=== PATIENT | male | born 1985 | race Caucasian/White ===

== ENCOUNTER → 2021-02-07 15:48 | Outpatient (CLI) | payer BC, SELFPAY ==
[2021-02-07 18:00] LABS: Motility Quality Moderate Progression (Mod-Rapid); PH,Semen 7.5 (7.3-8.3); Semen Viscosity Normal (Normal); Sperm Motility 60 % (50-90); WBCs,Semen Negative
[2021-02-07 18:48] LABS: Sperm Morphology Normal (Normal)
[2021-02-07 21:33] LABS: Sperm Count 41 mil/mm3 (20-160)
[2021-02-07 21:34] LABS: 3Hr Motility Quality Moderate Progression (Mod-Rapid); 3Hr Sperm Motility 10 % (50-60)
== END ==
PROVIDERS: Visit Provider Nurse Practitioner Obstetrics & Gynecology
DX: N46.9 Male infertility, unspecified (principal)
CPT/HCPCS: 89320

== ENCOUNTER 2021-04-10 16:17 | Emergency (ER) | payer BC, SELFPAY ==
[2021-04-10 18:11] VITALS: BP 142/84; PULSE 91; RESP 18; TEMP 37.2; O2SAT 96; BMI 31.6
--- NOTE | 2021-04-10 18:35 | HMH.EDUTC ---
[facility] [place] Disposition Clinical Impression: Exposure to COVID-19 virus Acute bronchitis Qualifiers: Bronchitis organism: unspecified organism Qualified Code(s): J20.9 - Acute bronchitis, unspecified Sinusitis Qualifiers: Sinusitis location: unspecified location Chronicity: acute Recurrence: non-recurrent Qualified Code(s): J01.90 - Acute sinusitis, unspecified Disposition: Home, Self-Care Condition on Discharge: Good Instructions: Sinusitis, DI for Sinusitis Additional Instructions: Drink plenty of fluids. Take tylenol or ibuprofen for pain or fever. Take the medications as directed. Follow up with your regular doctor. GO TO THE ER FOR ANY WORSENING SYMPTOMS Quarantine until you know the results of your covid-19 test. Notify your school or workplace of your results and follow their instructions regarding return to work/school. Don't start the oral steroids until tomorrow, since you had the shot here today. The cough medication (promethazine dm) will make you drowsy, so don't drive or operate heavy machinery after taking it. Prescriptions: Promethazine/Dextromethorphan [Promethazine-Dm Syrup] 5 ml PO Q6HP PRN #240 ml PRN Reason: Cough Transmission Status: Received by [email or web address] # methylPREDNISolone [Medrol] 4 mg PO DIRECTED 6 Days #21 packet Transmission Status: Received by [email or web address] # Azithromycin [Z-Bar 250mg Tab*] 250 mg PO UD DOSE PK #6 tab Transmission Status: Received by [email or web address] # Referrals: Festus Ford MD [Primary Care Provider] - Forms: Work/School Release Time of Disposition: 19:19 Medical Decision Making - Medical Records Medical records reviewed: No: I reviewed the patient's medical records. - Malcolm Inquiry Pt receiving controlled substance: No Vital Signs: 04/10/21 18:11 Temperature 99 F Temperature Source Oral Pulse Rate [Left] 91 H Respiratory Rate 18 Blood Pressure [Right Arm] 142/84 H Blood Pressure Mean [Right Arm] 103 02 Sat by Pulse Oximetry 96 - Lab Data Lab results reviewed: Yes: I reviewed the patient's lab results. Lab Results 04/10/21 18:39: Influenza Type A Ag Negative, Influenza Type B Ag Negative 04/10/21 18:42: Group A Strep Rapid Negative Orders (Tests/Meds): ED MEDICATIONS Discontinued Medications Generic Name Dose Route Start Last Admin Trade Name Daphne PRN Reason Stop Dose Admin Ceftriaxone Sodium 1 gm 04/10/21 19:18 04/10/21 19:35 Ceftriaxone 1gm Vial IM 04/10/21 19:19 1 gm ONCE ONE Administration Lidocaine HCl 0 ml 04/10/21 19:18 04/10/21 19:35 Lidocaine 1% 5ml Pf Vial IM 04/10/21 19:19 2 ml ONCE ONE Administration Methylprednisolone Sodium Succinate 125 mg 04/10/21 19:18 04/10/21 19:35 Methylprednisolone Sod Succ 125mg Vial IM 04/10/21 19:19 125 mg ONCE ONE Administration ORDERS Category Date Time Status Covid-19 Nasal PCR ([facility]) Routine Lab 04/10/21 18:42 Received Strep Screen Confirmation Routine Micro 04/10/21 18:42 [facility]ceived [facility] HPI - General Stated complaint: sore throat,cough,KEYES,Congestion Time Seen by Provider: 04/10/21 18:35 Mode of Arrival: Ambulatory Source of Information: Patient Limitations: No Limitations Description of Symptoms (Recalled from Triage Doc. by RN): pt states he has a sinus infection that has moved into his chest. x3 days. HEENT Symptoms (Recalled from RN notes): Yes Resp Symptoms (Recalled from RN notes): Yes Skin Symptoms (Recalled from RN notes): No MS Symptoms (Recalled from RN notes): No Functional Status (Recalled from RN notes): wnl - History of Present Illness Provider Complaint: He states that for the past 3 days he has had sinus congestion and chest congestion. He has had chilling and body aches also. He denies documented fever. - Related Data Previous Rx's Medication Instructions Recorded Azithromycin [Z-Bar 250mg Tab*] 250 mg PO UD DOSE PK #6 tab 04/10/21 Prom[facility]
[2021-04-10 19:03] LABS: UTC Influenza A Antigen Negative (Negative); UTC Influenza B Antigen Negative (Negative)
[2021-04-10 19:11] LABS: Strep Scrn Group A (Rapid) Negative (Negative)
[2021-04-10 20:02] VITALS: BP 142/84; PULSE 91; RESP 18; TEMP 37.2
== END 2021-04-10 20:03 | disposition home or self-care (01) ==
PROVIDERS: Emergency Provider Nurse Practitioner Family; PCP Family Medicine
DX: J20.9 Acute bronchitis, unspecified (principal); J01.90 Acute sinusitis, unspecified; Z20.822 Contact with and (suspected) exposure to COVID-19
CPT/HCPCS: 87430; 87804; 99203; C9803; G0463; J0696; U0003; U0005

== ENCOUNTER → 2021-04-24 12:19 | Outpatient (CLI) | payer BC, SELFPAY ==
[2021-04-25 09:41] LABS: Covid-19 Nasal PCR Sendout Lex POSITIVE
== END ==
PROVIDERS: Visit Provider Nurse Practitioner
DX: U07.1 COVID-19 (principal)
CPT/HCPCS: C9803; U0004; U0005

== ENCOUNTER 2021-04-28 06:49 | Inpatient (IN) | payer BC, SELFPAY ==
[2021-04-28] VITALS (15 sets, daily range): BP systolic 105–125; BP diastolic 67–76; PULSE 76–109; RESP 18–22; TEMP 36.9–38.7; O2SAT 89–96; BMI 31.6; BMI 29.1
--- NOTE | 2021-04-28 06:57 | CT_ITS ---
PROCEDURE INFORMATION: Exam: CTA Chest With Contrast Exam date and time: 04/28/2021 6:57 AM Age: 36 years old Clinical indication: Shortness of breath; Additional info: Covid+ SOA TECHNIQUE: Imaging protocol: Computed tomographic angiography of the chest with contrast. 3D rendering (Not supervised by radiologist): MIP and/or 3D reconstructed images were created by the technologist. Radiation optimization: All CT scans at this facility use at least one of these dose optimization techniques: automated exposure control; mA and/or kV adjustment per patient size (includes targeted exams where dose is matched to clinical indication); or iterative reconstruction. Contrast material: ISOVUE; Contrast volume: 70 ml; Contrast route: INTRAVENOUS (IV); COMPARISON: CR XR CHEST 2V 04/28/2021 7:40 AM FINDINGS: Pulmonary arteries: Suboptimal study due to extensive respiratory/cardiac motion. The main, right, and left pulmonary arteries and their visualized central branches show normal enhancement. Aorta: No thoracic aortic aneurysm or dissection. Lungs: Extensive confluent airspace opacities bilaterally. No central obstructive endobronchial mass or abnormality. Pleural spaces: No pleural effusion or pneumothorax. Heart: Heart size is normal, no pericardial effusion. A few normal-sized to borderline enlarged mediastinal/hilar lymph nodes. Lymph nodes: See Heart finding. Bones/joints: NA IMPRESSION: 1. Suboptimal study without evidence of acute central pulmonary thromboembolism. 2. Extensive MULTIFOCAL PNEUMONIA consistent with COVID-19 INFECTION. Recommend followup to complete resolution.
--- NOTE | 2021-04-28 06:57 | XR_ITS ---
PROCEDURE INFORMATION: Exam: XR Chest Exam date and time: 04/28/2021 6:57 AM Age: 36 years old Clinical indication: Shortness of breath; Additional info: Covid + SOA TECHNIQUE: Imaging protocol: XR of the chest. Views: 2 views. COMPARISON: No relevant prior studies available. FINDINGS: Lungs: Extensive confluent and focal airspace opacities in the lungs. Pleural spaces: No pleural effusion or pneumothorax. Heart/Mediastinum: Cardiomediastinal silhouette is normal. Bones/joints: NA IMPRESSION: MULTIFOCAL PNEUMONIA consistent with COVID-19 INFECTION. Recommend followup to complete resolution.
[2021-04-28 07:14] LABS: Basophils % 0.3 % (0.1-2.0); Eosinophils % 0.1 % (0.1-12.0); Hematocrit 42.8 % (42.0-52.0); Hemoglobin 13.9 g/dL (14.1-18.0); Lymphocytes # 0.5 K/mm3 (0.7-4.5); Lymphocytes % 9.8 % (10-50); Mean Corpuscular HGB Conc 32.4 g/dL (31.8-35.4); Mean Corpuscular Hemoglobin 28.5 pg (27.0-31.2); Mean Platelet Volume 8.5 fl (7.4-10.4); Monocytes # 0.1 K/mm3 (0.1-1.0); Monocytes % 0.9 % (1.7-9.3); Neutrophils # 4.5 K/mm3 (1.8-7.8); Neutrophils % 88.9 % (37.0-80.0); Platelet Count 163 K/mm3 (142-424); Red Blood Count 4.86 M/mm3 (4.60-6.20); Red Cell Distribution Width 12.4 % (11.5-17.5); White Blood Count 5.1 K/mm3 (4.8-10.8)
[2021-04-28 07:15] LABS: Chloride 97 mmol/L (98-107); Potassium 3.8 mmoL/L (3.5-5.1); Sodium 132 mmol/L (136-145)
[2021-04-28 07:17] LABS: Alanine Aminotransferase 32 U/L (12-78); Amylase 90 U/L (30-110); Aspartate Amino Transferase 71 U/L (17-59); Blood Urea Nitrogen 9 mg/dl (9-20); Creatinine Clearance Estimated 125 mL/min (50-200); Estimated Glomerular Filt Rate 75 ml/min (>60); GFR (African American) 91 ML/MIN (>60)
[2021-04-28 07:18] LABS: Albumin/Globulin Ratio 1.3 (1.1-1.8); Alkaline Phosphatase 63 U/L (38-126); Anion Gap 8.8 mEq/L (5-15); Bilirubin,Total 0.4 mg/dl (0.2-1.3); Calcium 8.4 mg/dl (8.4-10.2); Carbon Dioxide 30 mmol/L (22.0-30.0); Globulin 3.1 g/dL (1.3-3.2); Glucose 123 mg/dl (74-100); Lipase 190 U/L (23-300); Total Protein,Serum 7.1 g/dl (6.3-8.2)
[2021-04-28 07:19] LABS: MANUAL DIFFERENTIAL MANUAL DIFFERENTIAL (MANUAL DIFF)
[2021-04-28 07:22] LABS: C-Reactive Protein 121.6 mg/L (0-4)
[2021-04-28 07:49] LABS: Erythrocyte Sedimentation Rate 64 mm/hr (0-15)
[2021-04-28 07:54] LABS: Procalcitonin 0.288 ng/mL (0.0-2.0)
[2021-04-28 08:01] LABS: Lymphocytes % 10 % (10-50); Monocytes % 1 % (2-9); Neutrophils % 89 % (42-76); Platelet Estimate Normal; RBC Morphology Normal; Total Cells Counted 100
--- NOTE | 2021-04-28 08:06 | HMH.EDSOB ---
ED Disposition Clinical Impression: Pneumonia due to COVID-19 virus Respiratory failure, acute Qualifiers: Respiratory failure complication: hypoxia Qualified Code(s): J96.01 - Acute respiratory failure with hypoxia Disposition: Admitted As Inpatient Condition on Discharge: Serious - Critical Care Critical Care Time: No Attestation: On 04/28/21, the high probability of a clinically significant, sudden or life threatening deterioration of the following system(s) required my full and direct attention, intervention and personal management. The time I documented below is in addition to time spent performing reported procedures but includes the following listed in this critical care notation. Medical Decision Making - Medical Records Medical records reviewed: Yes: I reviewed the patient's medical records. - Malcolm Inquiry Pt receiving controlled substance: No Vital Signs: 04/28/21 06:50 04/28/21 07:00 04/28/21 07:30 Temperature 99.6 F Temperature Source Oral Pulse Rate 109 H 92 H Pulse Rate [Right] 102 H Respiratory Rate 18 Blood Pressure 105/70 L 106/67 L Blood Pressure [Right Arm] 122/73 Blood Pressure Mean [Right Arm] 89 02 Sat by Pulse Oximetry 94 L 96 92 L - Lab Data Lab results reviewed: Yes: I reviewed the patient's lab results. Lab Results 04/28/21 07:00: ESR 64 H 04/28/21 07:00: C-Reactive Protein 121.6 H, Amylase 90, Procalcitonin 0.288 04/28/21 07:00: WBC 5.1, RBC 4.86, Hgb 13.9 L, Hct 42.8, MCV 88.0, MCH 28.5, MCHC 32.4, RDW 12.4, Plt Count 163, MPV 8.5, Neut % (Auto) 88.9 H, Lymph % (Auto) 9.8 L, [place] % (Auto) 0.9 L, Eos % (Auto) 0.1, Baso % (Auto) 0.3, Neut # (Auto) 4.5, Lymph # (Auto) 0.5 L, [place] # (Auto) 0.1, Eos # (Auto) 0.0, Baso # (Auto) 0.0, Total Counted 100, Neutrophils % (Manual) 89 H, Lymphocytes % (Manual) 10, Monocytes % (Manual) 1 L, Platelet Estimate Normal, RBC Morphology Normal 04/28/21 07:00: Sodium 132 L, Potassium 3.8, Chloride 97 L, Carbon Dioxide 30, Anion Gap 8.8, BUN 9, Creatinine 1.10, Estimated Creat Clear 125, Estimated GFR 75, Est GFR ( Amer) 91, Glucose 123 H, Calcium 8.4, Total Bilirubin 0.4, AST 71 H, ALT 32, Alkaline Phosphatase 63, Total Protein 7.1, Albumin 4.0, Globulin 3.1, Albumin/Globulin Ratio 1.3, Lipase 190 Result diagrams: 04/28/21 07:00 04/28/21 07:00 Orders (Tests/Meds): ED MEDICATIONS Generic Name Dose Route Start Last Admin Trade Name Freq PRN Reason Stop Dose Admin Sodium Chloride 1,000 mls @ 500 mls/hr 04/28/21 07:00 04/28/21 07:06 Sod Chlor 0.9% 1000ml Bag IV 05/28/21 06:59 Not Given .Q2H MARY Sodium Chloride 8 ml 04/28/21 06:57 Sodium Chloride 0.9% 10ml Vial IV 05/28/21 06:56 NEEDED PRN dilute pepcid Discontinued Medications Generic Name Dose Route Start Last Admin Trade Name Freq PRN Reason Stop Dose Admin Dexamethasone Sodium Phosphate 10 mg 04/28/21 06:57 04/28/21 07:06 Dexamethasone 4mg/Ml 5ml Mdv IV 04/28/21 06:58 10 mg ONCE ONE Administration Famotidine 20 mg 04/28/21 06:57 04/28/21 07:06 Famotidine 20mg/2ml Vial IV 04/28/21 06:58 20 mg ONCE ONE Administration Iopamidol 70 ml 04/28/21 08:01 04/28/21 08:02 Iopamidol-370 (76%);100ml Bottle IV 04/28/21 08:02 70 ml ONCE ONE Administration Ketorolac Tromethamine 30 mg 04/28/21 06:57 04/28/21 07:06 Ketorolac 30mg/Ml Vial IV 04/28/21 06:58 30 mg ONCE ONE Administration Metoclopramide HCl 10 mg 04/28/21 06:57 04/28/21 07:06 Metoclopramide Hcl 10mg/2ml Vial IVP 04/28/21 06:58 10 mg ONCE ONE Administration Ondansetron HCl 4 mg 04/28/21 06:57 04/28/21 07:06 Ondansetron 4mg/2ml Vial IV 04/28/21 06:58 4 mg ONCE ONE Administration Sodium Chloride 50 ml 04/28/21 08:01 04/28/21 08:02 0.9 % Sodium Chloride 50 Ml Vial IV 04/28/21 08:02 50 ml ONCE ONE Administration Sodium Chloride 10 ml 04/28/21 08:01 04/28/21 08:02 Sodium Chloride 0.9% 10ml Syr (Rad On
--- NOTE | 2021-04-28 08:15 | PC.NURSE ---
placed pt on 2LPM NC d/t sat 89%
--- NOTE | 2021-04-28 08:46 | HMH.PHAINT ---
MEDICATION RECONCILIATION COMPLETED ON PATIENT USING EXTERNAL FILL HISTORY FROM PHARMACY. -BETY GALLOWAY, CEZARD
--- NOTE | 2021-04-28 09:53 | PC.NURSE ---
Patients being moved around, nurse is unable to take report at this time, will call back when available
--- NOTE | 2021-04-28 10:06 | PC.NURSE ---
Report given to Leta BEARD
--- NOTE | 2021-04-28 11:55 | HMH.PHAVTE ---
[facility] Pharmacy VTE Monitoring - Patient Demographics Admission date: 04/28/21 Report Date: 04/28/21 Time: 11:55 Allergies/Adverse Reactions: Patient Allergies No Known Allergies Allergy (Verified 04/10/21 18:56) Height: 1.75 m Weight: 89.613 kg Patient Problems: Current Active Problems Pneumonia due to COVID-19 virus (Acute) Respiratory failure, acute (Acute) - VTE Risk Labs: VTE Related Lab Results Hgb 13.9 g/dL (14.1-18.0) L 04/28/21 07:00 Hct 42.8 % (42.0-52.0) 04/28/21 07:00 Plt Count 163 K/mm3 (142-424) 04/28/21 07:00 BUN 9 mg/dl (9-20) 04/28/21 07:00 Creatinine 1.10 mg/dl (0.66-1.25) 04/28/21 07:00 Estimated Creat Clear 125 mL/min (50-200) 04/28/21 07:00 - Prophylaxis VTE Prophylaxis Ordered?: Yes Types of VTE Prophylaxis: TEDS Knee High, Pharmacological Location of Applied Device: Bilateral Lower Extremeties Pharmacologic Type: Enoxaparin
--- NOTE | 2021-04-28 12:23 | HMH.HP ---
*Admission Date: 04/28/21 *Chief complaint: Shortness of breath *History of present illness: 36-year-old male presented to the emergency department with shortness of breath and known diagnosis of COVID-19. Patient reports symptoms began on April 23 with URI symptoms that progressed over 24 hours to include fevers, chills, myalgias and cough with gradually increasing shortness of breath both at rest and with exertion. Cough is productive of clear sputum. Patient is unvaccinated against COVID-19. Symptoms progressed to the point early this morning where he presented to the emergency department. Patient had mild hypoxia which was corrected with application of nasal cannula at 2 L/min. Chest x-ray shows diffuse bilateral infiltrates decision has been made to admit the patient for COVID 19 with bilateral pneumonia and acute respiratory failure. Patient reports a medical history of bronchitis a lot as a child but never received a diagnosis of asthma. He smoked 1 pack of cigarettes a day for approximately 4 years and then transition to vaping devices for 10 years. Patient stopped vaping within the last year. [facility] History I have reviewed the patient's past medical history: Yes *Have you ever received a pneumonia vaccine?: No *Have you received a flu vaccine this season?: No - *Social History Smoking Status: Former smoker (1 pack of cigarettes per day for 4 years, vaping for 10 years) Tobacco Type: cigarettes, e-cigarettes Alcohol Intake: never *Occupational Status:: employed *Travel in the last 8 weeks: None Family Hx:: No significant family history Review of Systems - Review of Systems Review of systems:: pertinent systems reviewed and negative unless documented below - *Neurologic Denies headache(s), Denies seizure-like activity Meds Home Medications Medication Instructions Recorded Confirmed Type Promethazine/Dextromethorphan 5 ml PO Q6HP PRN #240 ml 04/10/21 04/28/21 Rx [Promethazine-Dm Syrup] Azelastine HCl [Azelastine Nasal 2 spray NS BIDP PRN 04/28/21 04/28/21 History [place] 30mL Bottle] Allergies Allergy/AdvReac Type Severity Reaction Status Date / Time No Known Allergies Allergy Verified 04/10/21 18:56 Exam Vital signs and Labs for Last 24 Hours: Temp Pulse Resp BP Pulse Ox 98.8 F 92 H 22 119/71 93 L 04/28/21 11:09 04/28/21 11:09 04/28/21 11:09 04/28/21 11:09 04/28/21 11:09 Laboratory Results - last 24 hr 04/28/21 07:00: ESR 64 H 04/28/21 07:00: C-Reactive Protein 121.6 H, Amylase 90, Procalcitonin 0.288 04/28/21 07:00: WBC 5.1, RBC 4.86, Hgb 13.9 L, Hct 42.8, MCV 88.0, MCH 28.5, MCHC 32.4, RDW 12.4, Plt Count 163, MPV 8.5, Neut % (Auto) 88.9 H, Lymph % (Auto) 9.8 L, [place] % (Auto) 0.9 L, Eos % (Auto) 0.1, Baso % (Auto) 0.3, Neut # (Auto) 4.5, Lymph # (Auto) 0.5 L, [place] # (Auto) 0.1, Eos # (Auto) 0.0, Baso # (Auto) 0.0, Total Counted 100, Neutrophils % (Manual) 89 H, Lymphocytes % (Manual) 10, Monocytes % (Manual) 1 L, Platelet Estimate Normal, RBC Morphology Normal 04/28/21 07:00: Sodium 132 L, Potassium 3.8, Chloride 97 L, Carbon Dioxide 30, Anion Gap 8.8, BUN 9, Creatinine 1.10, Estimated Creat Clear 125, Estimated GFR 75, Est GFR ( Amer) 91, Glucose 123 H, Calcium 8.4, Total Bilirubin 0.4, AST 71 H, ALT 32, Alkaline Phosphatase 63, Total Protein 7.1, Albumin 4.0, Globulin 3.1, Albumin/Globulin Ratio 1.3, Lipase 190 I & O for Last 24 hours: Intake & Output 04/26/21 04/27/21 04/28/21 04/29/21 11:59 11:59 11:59 11:59 Weight 197 lb 9 oz - Constitutional no acute distress Comments: Ill-appearing - *Routine HEENT Exam Head: Present: normocephalic Eye: Present: EOMI, PERRL ENT: Present: mucous membranes moist - *Routine Neck Exam Present: supple. Absent: lymphadenopathy - *Routine Respiratory Exam Present: CTA bilaterally (Bilateral), rales - *Routine Cardiovascular Exam Present: RRR - *Routine Abdominal Exam Present: soft, normoactive bowel
--- NOTE | 2021-04-28 15:10 | PC.NURSE ---
Pt unable to make productive cough. Specimen cup left at bedside.
[2021-04-29] VITALS (13 sets, daily range): BP systolic 124–139; BP diastolic 62–77; PULSE 73–96; RESP 16–22; TEMP 36.7–37.1; O2SAT 92–97; BMI 31.3
--- NOTE | 2021-04-29 06:10 | PC.NURSE ---
Pt c/o of chills and body aches at beginning of shift, fever of 101.7. Medicated per MAY - recheck temp was 98.5, body aches improved. Pt did prone some during my shift. While sleeping pt would occasionally drop to 88-89%, pt was also snoring and lying on back. Increased O2 to 3 L NC and had pt reposition. O2 sats improved. Will try to titrate back down to 2 L when awake. Call light in reach.
[2021-04-29 07:15] LABS: Chloride 103 mmol/L (98-107)
[2021-04-29 07:16] LABS: Basophils % 0.4 % (0.1-2.0); Hematocrit 40.2 % (42.0-52.0); Hemoglobin 13.3 g/dL (14.1-18.0); Lymphocytes # 0.5 K/mm3 (0.7-4.5); Mean Corpuscular HGB Conc 33.1 g/dL (31.8-35.4); Mean Corpuscular Hemoglobin 28.5 pg (27.0-31.2); Mean Corpuscular Volume 86.3 fl (80-94); Mean Platelet Volume 8.5 fl (7.4-10.4); Monocytes # 0.1 K/mm3 (0.1-1.0); Monocytes % 2.1 % (1.7-9.3); Neutrophils # 3.5 K/mm3 (1.8-7.8); Neutrophils % 84.5 % (37.0-80.0); Platelet Count 174 K/mm3 (142-424); Red Blood Count 4.66 M/mm3 (4.60-6.20); Red Cell Distribution Width 12.7 % (11.5-17.5); Sodium 136 mmol/L (136-145); White Blood Count 4.1 K/mm3 (4.8-10.8)
[2021-04-29 07:19] LABS: Blood Urea Nitrogen 11 mg/dl (9-20); Calcium 8.1 mg/dl (8.4-10.2); Carbon Dioxide 26 mmol/L (22.0-30.0); Creatinine Clearance Estimated 170 mL/min (50-200); Estimated Glomerular Filt Rate 108 ml/min (>60); GFR (African American) 131 ML/MIN (>60); Glucose 146 mg/dl (74-100); Magnesium 2.3 mg/dl (1.6-2.3)
--- NOTE | 2021-04-29 07:38 | P.PN_ITS ---
Internal Medicine - PN: Subj *Date: 04/29/21 *Time: 07:38 Interval history: No acute events. Patient has been lying prone when able. He continues to require supplemental oxygen at 2 or 3 L/min. He denies dyspnea on exertion Exam Vital signs and Labs for Last 24 Hours: Temp Pulse Resp BP Pulse Ox 98.0 F 95 H 22 139/77 95 04/29/21 04:00 04/29/21 04:00 04/29/21 04:00 04/29/21 04:00 04/29/21 04:00 Laboratory Results - last 24 hr 04/28/21 07:00: ESR 64 H 04/28/21 07:00: Procalcitonin 0.288 04/28/21 07:00: Total Counted 100, Neutrophils % (Manual) 89 H, Lymphocytes % (Manual) 10, Monocytes % (Manual) 1 L, Platelet Estimate Normal, RBC Morphology Normal 04/29/21 06:55: WBC 4.1 L, RBC 4.66, Hgb 13.3 L, Hct 40.2 L, MCV 86.3, MCH 28.5, MCHC 33.1, RDW 12.7, Plt Count 174, MPV 8.5, Neut % (Auto) 84.5 H, Lymph % (Auto) 13.0, [place] % (Auto) 2.1, Eos % (Auto) 0.0 L, Baso % (Auto) 0.4, Neut # (Auto) 3.5, Lymph # (Auto) 0.5 L, [place] # (Auto) 0.1, Eos # (Auto) 0.0, Baso # (Auto) 0.0 04/29/21 06:55: Sodium 136, Potassium 4.0, Chloride 103, Carbon Dioxide 26, Anion Gap 11.0, BUN 11, Creatinine 0.80 D, Estimated Creat Clear 170, Estimated GFR 108, Est GFR ( Amer) 131 D, Glucose 146 H, Calcium 8.1 L, Magnesium 2.3 I & O for Last 24 hours: Intake & Output 04/26/21 04/27/21 04/28/21 04/29/21 11:59 11:59 11:59 11:59 Intake Total 1720 / 1720 Balance 1720 / 1720 Weight 197 lb 9 oz 211 lb 9.6 oz Microbiology Reports for the Last 24 Hours: Microbiology 04/28/21 22:48 Sputum - Expectorated Sputum Gram Stain - Final 04/28/21 22:48 Sputum - Expectorated Sputum Sputum Culture - Final Narrative: Patient still looks ill. There is no increased work of breathing. Lungs have diffuse rales and decreased breath sounds posteriorly. Heart has a regular rate and rhythm. Abdomen remains soft Assessment and Plan (1) Pneumonia due to COVID-19 virus Status: Acute Category: Medical Code(s): U07.1 - COVID-19; J12.82 - Pneumonia due to coronavirus disease 2019 (2) Respiratory failure, acute Status: Acute Qualifiers: Respiratory failure complication: hypoxia Qualified Code(s): J96.01 - Acute respiratory failure with hypoxia Category: Medical Code(s): J96.00 - Acute respiratory failure, unspecified whether with hypoxia or hypercapnia - Assessment and plan all Dx Assessment and Plan for all problems:: 1. Continue Remdesivir and dexamethasone along with nutritional supplem entation. Continue duo nebs and budesonide 2. Lovenox for DVT prophylaxis
--- NOTE | 2021-04-29 08:00 | XR_ITS ---
PROCEDURE INFORMATION: Exam: XR Chest Exam date and time: 04/29/2021 8:00 AM Age: 36 years old Clinical indication: Shortness of breath and other: Covid; Additional info: SOB TECHNIQUE: Imaging protocol: XR of the chest. Views: 1 view. COMPARISON: CR XR CHEST 2V 04/28/2021 7:40 AM FINDINGS: Lungs: Bilateral patchy airspace opacities in all lung nguyen noted similar to prior study with slight worsening in the bibasilar and retrocardiac regions, allowing for slight differences in positioning. Pleural spaces: Unremarkable. No pleural effusion. No pneumothorax. Heart/Mediastinum: Unremarkable. No cardiomegaly. Bones/joints: Unremarkable. IMPRESSION: Bilateral patchy airspace opacities in all lung nguyen noted similar to prior study with slight worsening in the bibasilar and retrocardiac regions, allowing for slight differences in positioning.
[2021-04-29 08:48] LABS: Influenza A, PCR Not Detected (NotDetected); Influenza B, PCR Not Detected (NotDetected)
[2021-04-29 09:56] LABS: Coronavirus 19, PCR Detected (NotDetected)
--- NOTE | 2021-04-29 15:06 | PC.NURSE ---
AOX4, HAS AMBULATED TO RR FOR ELIMINATION. 3LNC FOR O2 SUPPORT WITH O2 SATS >90%. NEW IV PLACED 20# LEFT AC.
[2021-04-30] VITALS (11 sets, daily range): BP systolic 120–132; BP diastolic 69–77; PULSE 70–99; RESP 18–24; TEMP 36.6–36.9; O2SAT 90–98; BMI 30.7
[2021-04-30 06:19] LABS: Basophils % 0.6 % (0.1-2.0); Eosinophils % 0.7 % (0.1-12.0); Hematocrit 40.7 % (42.0-52.0); Hemoglobin 12.7 g/dL (14.1-18.0); Lymphocytes # 0.7 K/mm3 (0.7-4.5); Lymphocytes % 13.6 % (10-50); Mean Corpuscular HGB Conc 31.3 g/dL (31.8-35.4); Mean Corpuscular Hemoglobin 27.6 pg (27.0-31.2); Mean Corpuscular Volume 88.2 fl (80-94); Mean Platelet Volume 8.7 fl (7.4-10.4); Monocytes # 0.1 K/mm3 (0.1-1.0); Monocytes % 2.8 % (1.7-9.3); Neutrophils # 4.3 K/mm3 (1.8-7.8); Neutrophils % 82.4 % (37.0-80.0); Platelet Count 204 K/mm3 (142-424); Red Blood Count 4.61 M/mm3 (4.60-6.20); Red Cell Distribution Width 12.6 % (11.5-17.5); White Blood Count 5.2 K/mm3 (4.8-10.8)
[2021-04-30 06:28] LABS: Chloride 103 mmol/L (98-107); Potassium 4.6 mmoL/L (3.5-5.1); Sodium 136 mmol/L (136-145)
[2021-04-30 06:30] LABS: Alanine Aminotransferase 53 U/L (12-78); Aspartate Amino Transferase 85 U/L (17-59); Bilirubin,Total 0.4 mg/dl (0.2-1.3); Blood Urea Nitrogen 12 mg/dl (9-20); Creatinine Clearance Estimated 167 mL/min (50-200); Estimated Glomerular Filt Rate 108 ml/min (>60); GFR (African American) 131 ML/MIN (>60)
[2021-04-30 06:31] LABS: Albumin Level 3.3 g/dl (3.5-5.0); Albumin/Globulin Ratio 1.1 (1.1-1.8); Alkaline Phosphatase 60 U/L (38-126); Anion Gap 10.6 mEq/L (5-15); Calcium 8.1 mg/dl (8.4-10.2); Carbon Dioxide 27 mmol/L (22.0-30.0); Glucose 99 mg/dl (74-100); Total Protein,Serum 6.3 g/dl (6.3-8.2)
[2021-04-30 06:39] LABS: C-Reactive Protein 34.3 mg/L (0-4)
--- NOTE | 2021-04-30 07:12 | P.PN_ITS ---
Internal Medicine - PN: Subj *Date: 04/30/21 *Time: 07:12 Interval history: Patient has no complaints. No acute events over the last 24 hours. Review of his vitals shows a brief increase in his supplemental oxygen to 4 L/min. Currently in the room oxygen set on 3-1/2 L/min. Patient reports improvement in his shortness of breath Exam Vital signs and Labs for Last 24 Hours: Temp Pulse Resp BP Pulse Ox 98.4 F 72 21 126/77 92 L 04/30/21 03:53 04/30/21 06:42 04/30/21 03:53 04/30/21 03:53 04/30/21 06:42 Laboratory Results - last 24 hr 04/29/21 06:55: WBC 4.1 L, RBC 4.66, Hgb 13.3 L, Hct 40.2 L, MCV 86.3, MCH 28.5, MCHC 33.1, RDW 12.7, Plt Count 174, MPV 8.5, Neut % (Auto) 84.5 H, Lymph % (Auto) 13.0, [place] % (Auto) 2.1, Eos % (Auto) 0.0 L, Baso % (Auto) 0.4, Neut # (Auto) 3.5, Lymph # (Auto) 0.5 L, [place] # (Auto) 0.1, Eos # (Auto) 0.0, Baso # (Auto) 0.0 04/29/21 06:55: Sodium 136, Potassium 4.0, Chloride 103, Carbon Dioxide 26, Anion Gap 11.0, BUN 11, Creatinine 0.80 D, Estimated Creat Clear 170, Estimated GFR 108, Est GFR ( Amer) 131 D, Glucose 146 H, Calcium 8.1 L, Magnesium 2.3 04/29/21 08:43: SARS-CoV-2 (PCR) Detected A, Influenza A Untype (PCR) Not detected, Influenza Type B (PCR) Not detected 04/30/21 05:42: Sodium 136, Potassium 4.6, Chloride 103, Carbon Dioxide 27, An ion Gap 10.6, BUN 12, Creatinine 0.80, Estimated Creat Clear 167, Estimated GFR 108, Est GFR ( Amer) 131, Glucose 99 D, Calcium 8.1 L, Total Bilirubin 0.4, AST 85 H, ALT 53 D, Alkaline Phosphatase 60, C-Reactive Protein 34.3 H D, Total Protein 6.3, Albumin 3.3 L, Globulin 3.0, Albumin/Globulin Ratio 1.1 I & O for Last 24 hours: Intake & Output 04/27/21 04/28/21 04/29/21 04/30/21 11:59 11:59 11:59 11:59 Intake Total 2079 / 2079 600 / 600 Balance 2079 / 2079 600 / 600 Weight 197 lb 9 oz 211 lb 9.6 oz 207 lb 8 oz Microbiology Reports for the Last 24 Hours: Microbiology 04/29/21 11:50 Sputum - Expectorated Sputum Gram Stain - Final Narrative: Patient looks comfortable. Lungs are diminished and distant at the bases with rales present in the posterior mid lungs and bases. Anteriorly patient has faint rales. Heart has a regular rate and rhythm. Abdomen is soft. Lower ex tremities have no edema. Sputum culture showing gram-positive cocci in chains and clusters Assessment and Plan (1) Pneumonia due to COVID-19 virus Status: Acute Category: Medical Code(s): U07.1 - COVID-19; J12.82 - Pneumonia due to coronavirus disease 2019 (2) Respiratory failure, acute Status: Acute Qualifiers: Respiratory failure complication: hypoxia Qualified Code(s): J96.01 - Acute respiratory failure with hypoxia Category: Medical Code(s): J96.00 - Acute respiratory failure, unspecified whether with hypoxia or hypercapnia - Assessment and plan all Dx Assessment and Plan for all problems:: 1. Continue Remdesivir and dexamethasone with goal of Remdesivir for at least 5 days 2. Continue supplemental oxygen to keep sats greater than 90 3. Patient will continue prone positioning. Add incentive spirometry 4. Due to abnormal sputum culture vancomycin will be added this morning while awaiting final result
--- NOTE | 2021-04-30 08:11 | HMH.PHACONS ---
- Pharmacy Consult Date: 04/30/21 Time: 08:11 Referring provider: DR VAZQUEZ Reason for Consult:: VANCOMYCIN DOSING CONSULT Allergies and ADEs:: Allergies Allergy/AdvReac Type Severity Reaction Status Date / Time No Known Allergies Allergy Verified 04/10/21 18:56 Home Medications:: Home Medications Medication Instructions Recorded Confirmed Type Promethazine/Dextromethorphan 5 ml PO Q6HP PRN #240 ml 04/10/21 04/28/21 Rx [Promethazine-Dm Syrup] Azelastine HCl [Azelastine Nasal 2 spray NS BIDP PRN 04/28/21 04/28/21 History [place] 30mL Bottle] Height: 1.75 m Weight: 94.12 kg Laboratory Results:: Laboratory Results - last 24 hr 04/29/21 08:43: SARS-CoV-2 (PCR) Detected A, Influenza A Untype (PCR) Not detected, Influenza Type B (PCR) Not detected 04/30/21 05:42: Sodium 136, Potassium 4.6, Chloride 103, Carbon Dioxide 27, Anion Gap 10.6, BUN 12, Creatinine 0.80, Estimated Creat Clear 167, Estimated GFR 108, Est GFR ( Amer) 131, Glucose 99 D, Calcium 8.1 L, Total Bilirubin 0.4, AST 85 H, ALT 53 D, Alkaline Phosphatase 60, C-Reactive Protein 34.3 H D, Total Protein 6.3, Albumin 3.3 L, Globulin 3.0, Albumin/Globulin Ratio 1.1 04/30/21 05:42: WBC 5.2 D, RBC 4.61, Hgb 12.7 L, Hct 40.7 L, MCV 88.2, MCH 27.6, MCHC 31.3 L, RDW 12.6, Plt Count 204, MPV 8.7, Neut % (Auto) 82.4 H, Lymph % (Auto) 13.6, [place] % (Auto) 2.8, Eos % (Auto) 0.7, Baso % (Auto) 0.6, Neut # (Auto) 4.3, Lymph # (Auto) 0.7, [place] # (Auto) 0.1, Eos # (Auto) 0.0, Baso # (Auto) 0.0 Medical History: Denies:: Cancer, Diabetes Mellitus Type 1, Diabetes Mellitus Type 2, Internal Pacemaker, MRSA Assessment and Plan (1) Pneumonia due to COVID-19 virus Status: Acute Category: Medical Code(s): U07.1 - COVID-19; J12.82 - Pneumonia due to coronavirus disease 2018 (2) Respiratory failure, acute Status: Acute Qualifiers: Respiratory failure complication: hypoxia Qualified Code(s): J96.01 - Acute respiratory failure with hypoxia Category: Medical Code(s): J96.00 - Acute respiratory failure, unspecified whether with hypoxia or hypercapnia - Assessment and plan all Dx Assessment and Plan for all problems:: Pharmacokinetic dosing service Objective: Age: 36 yo Serum creatinine: 0.8 mg/dL Height: 68.9 Inches Weight (kg): 94.12 Diagnosis: PNEUMONIA Assessment: IBW (kg): 70.47 Dosing wt(kg): 94.12 Estimated Creatinine clearance (ml/min): 124.8 CRCL method: Cockcroft and Gault using ibw(default). Drug selected: Vancomycin Loading dose (mg): Vd (liters): 65.9 (factor used: 0.7 L/kg) Marc (hr-1): 0.108 Half life (hrs): 6.42 CLvanco=?? 7.117 L/hr Recommended dose: 1750 mg Interval: 12 hrs Infusion time (hrs): 2.0 Predicted peak (mcg/mL): 32.9 Predicted trough (mcg/mL): 11.17 Total body weight is being used for vancomycin dosing. Recommendations: Give Vancomycin 1750 mg q 12 hrs with an expected Cpeak of 32.9 mcg/ml and an expected Ctrough of 11.17 mcg/ml AUC 0-24 /GAVIN Data: GAVIN 0.5 mcg/mL:?? AUC/GAVIN:? 983.6 GAVIN 1.0 mcg/mL:?? AUC/GAVIN:? 491.8 --------- GAVIN 1.5 mcg/mL:?? AUC/GAVIN:? 327.9 GAVIN 2.0 mcg/mL:?? AUC/GAVIN:? 245.9 Thank you for the consult, will continue to follow.
[2021-05-01] VITALS (10 sets, daily range): BP systolic 122–149; BP diastolic 69–82; PULSE 73–102; RESP 16–24; TEMP 36.4–36.8; O2SAT 86–95; BMI 30.7
--- NOTE | 2021-05-01 05:14 | PC.NURSE ---
pt has rested intermittently t/o shift, has remained on room this shift with O2 sats 90-95%, does desat with exertion to low to mid 80's, recovers within approximately 5 minutes, back to 90%, HR 74-95, no complaints of pain
[2021-05-01 06:16] LABS: Basophils % 0.3 % (0.1-2.0); Eosinophils % 0.1 % (0.1-12.0); Hematocrit 40.7 % (42.0-52.0); Hemoglobin 12.9 g/dL (14.1-18.0); Lymphocytes # 0.7 K/mm3 (0.7-4.5); Lymphocytes % 16.2 % (10-50); Mean Corpuscular HGB Conc 31.6 g/dL (31.8-35.4); Mean Corpuscular Hemoglobin 27.8 pg (27.0-31.2); Mean Corpuscular Volume 87.9 fl (80-94); Mean Platelet Volume 8.5 fl (7.4-10.4); Monocytes # 0.2 K/mm3 (0.1-1.0); Monocytes % 4.2 % (1.7-9.3); Neutrophils # 3.5 K/mm3 (1.8-7.8); Neutrophils % 79.2 % (37.0-80.0); Platelet Count 219 K/mm3 (142-424); Red Blood Count 4.63 M/mm3 (4.60-6.20); Red Cell Distribution Width 12.5 % (11.5-17.5); White Blood Count 4.5 K/mm3 (4.8-10.8)
[2021-05-01 06:18] LABS: Chloride 102 mmol/L (98-107); Potassium 4.5 mmoL/L (3.5-5.1); Sodium 135 mmol/L (136-145)
[2021-05-01 06:21] LABS: Alanine Aminotransferase 108 U/L (12-78); Albumin Level 3.4 g/dl (3.5-5.0); Albumin/Globulin Ratio 1.2 (1.1-1.8); Alkaline Phosphatase 61 U/L (38-126); Anion Gap 10.5 mEq/L (5-15); Aspartate Amino Transferase 86 U/L (17-59); Bilirubin,Total 0.4 mg/dl (0.2-1.3); Blood Urea Nitrogen 15 mg/dl (9-20); Calcium 8.5 mg/dl (8.4-10.2); Carbon Dioxide 27 mmol/L (22.0-30.0); Creatinine Clearance Estimated 167 mL/min (50-200); Estimated Glomerular Filt Rate 108 ml/min (>60); GFR (African American) 131 ML/MIN (>60); Globulin 2.9 g/dL (1.3-3.2); Glucose 97 mg/dl (74-100); Total Protein,Serum 6.3 g/dl (6.3-8.2)
--- NOTE | 2021-05-01 06:57 | PC.NURSE ---
pt educated on IS this shift
--- NOTE | 2021-05-01 07:28 | HMH.ACPN2 ---
Internal Medicine - PN: Subj *Date: 05/01/21 *Time: 07:28 Interval history: Patient has no complaints. He feels congested. He reports dyspnea with certain types of exertion such as bending over but less so with walking. O2 sat still ranged from 88 to 95% on room air. Patient does desaturate with exertion Exam Vital signs and Labs for Last 24 Hours: Temp Pulse Resp BP Pulse Ox 97.8 F 95 H 24 123/78 94 L 05/01/21 04:00 05/01/21 06:25 05/01/21 04:00 05/01/21 04:00 05/01/21 06:25 Laboratory Results - last 24 hr 05/01/21 06:00: Sodium 135 L, Potassium 4.5, Chloride 102, Carbon Dioxide 27, Anion Gap 10.5, BUN 15, Creatinine 0.80, Estimated Creat Clear 167, Estimated GFR 108, Est GFR ( Amer) 131, Glucose 97, Calcium 8.5, Total Bilirubin 0.4, AST 86 H, ALT 108 H D, Alkaline Phosphatase 61, Total Protein 6.3, Albumin 3.4 L, Globulin 2.9, Albumin/Globulin Ratio 1.2 05/01/21 06:00: WBC 4.5 L, RBC 4.63, Hgb 12.9 L, Hct 40.7 L, MCV 87.9, MCH 27.8, MCHC 31.6 L, RDW 12.5, Plt Count 219, MPV 8.5, Neut % (Auto) 79.2, Lymph % (Auto) 16.2, [place] % (Auto) 4.2, Eos % (Auto) 0.1, Baso % (Auto) 0.3, Neut # (Auto) 3.5, Lymph # (Auto) 0.7, [place] # (Auto) 0.2, Eos # (Auto) 0.0, Baso # (Auto) 0.0 I & O for Last 24 hours: Intake & Output 04/28/21 04/29/21 04/30/21 05/01/21 11:59 11:59 11:59 11:59 Intake Total 2079 960 / 960 1919 / 1919 Balance 2079 960 / 960 1919 / 1919 Weight 197 lb 9 oz 211 lb 9.6 oz 207 lb 8 oz 207 lb 4.8 oz Microbiology Reports for the Last 24 Hours: Microbiology 04/29/21 11:50 Sputum - Expectorated Sputum Gram Stain - Final 04/29/21 11:50 Sputum - Expectorated Sputum Sputum Culture - Preliminary Narrative: Patient's color looks better. Oropharynx is moist. Neck is supple. Lungs are distant but otherwise no rales or rhonchi. Heart has a regular rate and rhythm. Sputum culture showing gram-positive cocci in chains, clusters, and gram-positive bacilli Assessment and Plan (1) Pneumonia due to COVID-19 virus Status: Acute Category: Medical Code(s): U07.1 - COVID-19; J12.82 - Pneumonia due to coronavirus disease 2019 (2) Respiratory failure, acute Status: Acute Qualifiers: Respiratory failure complication: hypoxia Qualified Code(s): J96.01 - Acute respiratory failure with hypoxia Category: Medical Code(s): J96.00 - Acute respiratory failure, unspecified whether with hypoxia or hypercapnia - Assessment and plan all Dx Assessment and Plan for all problems:: 1. Continue Remdesivir and dexamethasone. Patient is improving. Would anticipate discharge tomorrow as long as patient continues to show improvement. Patient will need supplemental oxygen at discharge. 2. Continue duo nebs during hospitalization 3. Lovenox for DVT prophylaxis
--- NOTE | 2021-05-01 17:53 | PC.NURSE ---
patient has done okay this shift. has taken o2 off and on. does desat into the 70s with exertion and coughing. did turn up to 3l to assist him with recovering back to base line. has used incentive spirometer and educated on it. has been independent. does say he wants to go home but did appear slightly anxious. does appear to have good coloring. only complaint has been the cough. vitals stable
--- NOTE | 2021-05-01 20:01 | PC.NURSE ---
called [facility] at this time for vanc trough of 6.0, [facility]watch advised to change the dose to 2 gm and will put order in
[2021-05-02] VITALS: BP 124/74; PULSE 66; RESP 18; TEMP 36.7; O2SAT 93
[2021-05-02 01:54] LABS: Vancomycin,Peak 21.9 ug/ml (11-39)
[2021-05-02 04:00] VITALS: BP 122/71; PULSE 84; RESP 20; TEMP 37.2; O2SAT 90
[2021-05-02 05:00] VITALS: BMI 30.2
--- NOTE | 2021-05-02 06:08 | PC.NURSE ---
pt has remained on 1-2L NC this shift, O2 sats 90-95%, has appeared anxious this shift, does desat with exertion, has not had any complaints of pain, HR 66-90
[2021-05-02 06:43] VITALS: O2SAT 88
[2021-05-02 06:55] LABS: Chloride 103 mmol/L (98-107); Sodium 135 mmol/L (136-145)
[2021-05-02 06:56] LABS: Basophils % 0.2 % (0.1-2.0); Eosinophils % 0.3 % (0.1-12.0); Hematocrit 42.1 % (42.0-52.0); Hemoglobin 13.5 g/dL (14.1-18.0); Lymphocytes # 0.9 K/mm3 (0.7-4.5); Lymphocytes % 12.1 % (10-50); Mean Corpuscular Hemoglobin 28.3 pg (27.0-31.2); Mean Corpuscular Volume 88.2 fl (80-94); Mean Platelet Volume 8.5 fl (7.4-10.4); Monocytes # 0.2 K/mm3 (0.1-1.0); Neutrophils # 6.6 K/mm3 (1.8-7.8); Neutrophils % 84.4 % (37.0-80.0); Platelet Count 301 K/mm3 (142-424); Potassium 4.5 mmoL/L (3.5-5.1); Red Blood Count 4.78 M/mm3 (4.60-6.20); Red Cell Distribution Width 12.5 % (11.5-17.5); White Blood Count 7.8 K/mm3 (4.8-10.8)
[2021-05-02 06:58] LABS: Alanine Aminotransferase 141 U/L (12-78); Albumin Level 3.7 g/dl (3.5-5.0); Albumin/Globulin Ratio 1.2 (1.1-1.8); Alkaline Phosphatase 65 U/L (38-126); Anion Gap 8.5 mEq/L (5-15); Aspartate Amino Transferase 92 U/L (17-59); Bilirubin,Total 0.5 mg/dl (0.2-1.3); Blood Urea Nitrogen 16 mg/dl (9-20); Carbon Dioxide 28 mmol/L (22.0-30.0); Creatinine Clearance Estimated 146 mL/min (50-200); Estimated Glomerular Filt Rate 94 ml/min (>60); GFR (African American) 114 ML/MIN (>60); Globulin 3.1 g/dL (1.3-3.2); Total Protein,Serum 6.8 g/dl (6.3-8.2)
[2021-05-02 06:59] LABS: Calcium 8.2 mg/dl (8.4-10.2); Glucose 81 mg/dl (74-100)
--- NOTE | 2021-05-02 07:33 | SW/DCPLANNER ---
Addendum entered by Latosha Singleton 05/02/21 09:33: Sarah kumar/ Alina stated that portable tank is being delivered to [facility] at this time. Original Note: The plan is for this patient to discharge home today w/ home O2. Patient information and order has been faxed to [facility] for home O2 + portable tank. I will follow up with Alina once patient information/order is reviewed.
--- NOTE | 2021-05-02 07:34 | HMH.DCSUM ---
General - General Admission date:: 04/28/21 Discharge date: 05/02/21 HPI HPI: 36-year-old male presented to the emergency department with shortness of breath and known diagnosis of COVID-19. Patient reports symptoms began on April 23 with URI symptoms that progressed over 24 hours to include fevers, chills, myalgias and cough with gradually increasing shortness of breath both at rest and with exertion. Cough is productive of clear sputum. Patient is unvaccinated against COVID-19. Symptoms progressed to the point early this morning where he presented to the emergency department. Patient had mild hypoxia which was corrected with application of nasal cannula at 2 L/min. Chest x-ray shows diffuse bilateral infiltrates decision has been made to admit the patient for COVID 19 with bilateral pneumonia and acute respiratory failure. Patient reports a medical history of bronchitis a lot as a child but never received a diagnosis of asthma. He smoked 1 pack of cigarettes a day for approximately 4 years and then transition to vaping devices for 10 years. Patient stopped vaping within the last year. Hospital Course Hospital Course: Patient was admitted and placed on supplemental oxygen for acute respiratory failure. Initially patient required 3 to 4 L/min but during hospitalization was able to be weaned to 2 L/min. Patient did continue to desat when on room air with O2 sats dropping down to the mid 80s. Patient would desaturate further after activity. Patient completed 5 days of Remdesivir and dexamethasone. Patient was given duo nebs and budesonide during hospitalization as well. After 5 days of hospitalization patient was stable. Patient will need further time to recuperate but medical management can continue at home. Patient was discharged home. Patient will be prescribed cefdinir at discharge as his sputum culture is growing gram-positive cocci. In speaking with micro lab there is some concern about possible strep pneumonia being the dominant organism in his sputum culture. Patient will follow up in the office in 1 week. He will continue oxygen at home. Continue prone positioning at home. Objective Vital signs: Temp Pulse Resp BP Pulse Ox 98.9 F 84 20 122/71 88 L 05/02/21 04:00 05/02/21 04:00 05/02/21 04:00 05/02/21 04:00 05/02/21 06:43 no acute distress - *Routine Respiratory Exam Present: distant breath sounds - *Routine Cardiovascular Exam Present: RRR - *Routine Extremities Exam Absent: cyanosis, clubbing, edema Results Labs on day of discharge: Labs from last 24 hours 05/02/21 05/02/21 05/02/21 06:23 06:23 00:55 WBC 7.8 D RBC 4.78 Hgb 13.5 L Hct 42.1 MCV 88.2 MCH 28.3 MCHC 32.0 RDW 12.5 Plt Count 301 D MPV 8.5 Neut % (Auto) 84.4 H Lymph % (Auto) 12.1 [place] % (Auto) 3.0 Eos % (Auto) 0.3 Baso % (Auto) 0.2 Neut # (Auto) 6.6 Lymph # (Auto) 0.9 [place] # (Auto) 0.2 Eos # (Auto) 0.0 Baso # (Auto) 0.0 Sodium 135 L Potassium 4.5 Chloride 103 Carbon Dioxide 28 Anion Gap 8.5 BUN 16 Creatinine 0.90 Estimated Creat Clear 146 Estimated GFR 94 Est GFR ( Amer) 114 Glucose 81 Calcium 8.2 L Total Bilirubin 0.5 AST 92 H ALT 141 H D Alkaline Phosphatase 65 Total Protein 6.8 Albumin 3.7 Globulin 3.1 Albumin/Globulin Ratio 1.2 Vancomycin Peak 21.9 Vancomycin Trough 05/01/21 19:12 WBC RBC Hgb Hct MCV MCH MCHC RDW Plt Count MPV Neut % (Auto) Lymph % (Auto) [place] % (Auto) Eos % (Auto) Baso % (Auto) Neut # (Auto) Lymph # (Auto) [place] # (Auto) Eos # (Auto) Baso # (Auto) Sodium Potassium Chloride Carbon Dioxide Anion Gap BUN Creatinine Estimated Creat Clear Estimated GFR Est GFR ( Amer) Glucose Calcium Total Bilirubin AST ALT Alkaline Phosphatase Total Protein Albumin Gl
--- NOTE | 2021-05-02 07:42 | PC.NURSE ---
pt will desat to 80% when ambulating to the bathroom.
[2021-05-02 08:00] VITALS: BP 116/67; PULSE 114; RESP 20; TEMP 36.8; O2SAT 92; O2SAT 93
[2021-05-02 12:00] VITALS: BP 120/69; PULSE 99; RESP 16; TEMP 36.4; O2SAT 90
== END 2021-05-02 13:54 | disposition home or self-care (01) | DRG 177 ==
LOC: ER 08:12 → 2ND 09:04
PROVIDERS: Admitting Provider Family Medicine; Emergency Provider Emergency Medicine; PCP Family Medicine; Visit Provider Family Medicine
DX: U07.1 COVID-19 (principal); J12.82 Pneumonia due to coronavirus disease 2019; J96.01 Acute respiratory failure with hypoxia; F17.290 Nicotine dependence, other tobacco product, uncomplicated
CPT/HCPCS: 36415; 71045; 71046; 71275; 80048; 80053; 80202; 82150; 83690; 83735; 84145; 85007; 85025; 85651; 86140; 87070; 87077; 87186; 87205; 94640; 94760; 94761; 96374; 96375; 99283; C9803; J2405; J3370; Q9967; U0003; U0005

== ENCOUNTER 2021-05-15 16:06 | Inpatient (IN) | payer BC, SELFPAY ==
--- NOTE | 2021-05-15 13:40 | CT_ITS ---
FINAL REPORT TECHNIQUE: Thin section axial CT images were performed from the lung apices to the upper abdomen after the administration of IV contrast. 3-D and MIP reconstructions performed. This study was performed with techniques to keep radiation doses as low as reasonably achievable (ALARA). Individualized dose reduction techniques using automated exposure control or adjustment of mA and/or kV according to the patient''s size were employed. CLINICAL HISTORY: CHEST PAIN,SOB,TENDERNESS OF RT CALF,S/P COVID,SINUS TACHYCARDIA COMPARISON: April 28, 2021 FINDINGS: The pulmonary arteries opacification is suboptimal. No filling defect is identified. The thoracic aorta is patent without evidence of dissection. There is no axillary adenopathy. There is moderate mediastinal lymphadenopathy. There is a 1.5 cm right paratracheal lymph node. There is a 1.5 cm subcarinal lymph node. The heart size is normal. There is no pleural or pericardial effusion. Lung window images show dense patchy bilateral airspace infiltrates which are denser and more confluent than on the prior exam. There is a large right pneumothorax with basilar and medial components. Pleural separation measures up to 5 cm. Limited images of the upper abdomen are unremarkable. IMPRESSION: 1. Suboptimal opacification of pulmonary arteries, but no filling defect identified. 2. Large right pneumothorax. 3. Dense patchy bilateral airspace infiltrates are more dense and more confluent than on the prior exam. These findings were called to the ordering physician's office on May 15, 2021 at 2:54 p.m.. Reviewed, Interpreted and Dictated by Franky Ely MD Transcribed by NIRALI Ledesma Authenticated by Franky Ely MD on 05/15/2021 02:54:15 PM [facility]
--- NOTE | 2021-05-15 15:17 | XR_ITS ---
FINAL REPORT CLINICAL HISTORY: ACUTE PNEUMOTHORAX COMPARISON: CT dated 05/15/2019 FINDINGS: TWO VIEWS OF THE CHEST The heart is normal in size. The mediastinum is unremarkable. There is a large right pneumothorax with pleural separation of 3.5 cm. This is new since the prior chest radiograph. There are dense bilateral airspace infiltrates throughout both lungs. IMPRESSION: Large right pneumothorax previously identified on CT. Physician was notified at time of dictation. Reviewed, Interpreted and Dictated by Franky Ely MD Transcribed by Bettye Pñea Authenticated by Franky Ely MD on 05/15/2021 04:19:22 PM [facility]
[2021-05-15 16:00] VITALS: BP 152/78; PULSE 98; RESP 20; TEMP 36.6; O2SAT 97
--- NOTE | 2021-05-15 16:15 | HMH.GSCON ---
*Admission Date: 05/15/21 *Reason for consult:: Pneumothorax *History of present illness: Patient is a 36-year-old male who had been recently hospitalized a couple of weeks ago with diagnosis of COVID-19. He had presented to his primary care provider's office this afternoon for routine follow-up after hospitalization. He had been having some progressive shortness of breath with exertion for a couple of days. He also had some mild right-sided chest pain and was found to be tachycardic. There was a concern for possible pulmonary embolism. He was sent for CT angiogram. This was negative for pulmonary embolism but showed a large right-sided pneumothorax . This was confirmed by chest x-ray. He was admitted for inpatient management and plan for chest tube placement. Review of Systems - Review of Systems Review of systems:: pertinent systems reviewed and negative unless documented below [facility] History I have reviewed the patient's past medical history: Yes Medical History: Denies:: Cancer, Diabetes Mellitus Type 1, Diabetes Mellitus Type 2, Internal Pacemaker, MRSA *Have you ever received a pneumonia vaccine?: No *Have you received a flu vaccine this season?: No Other Surgeries: No: Pacemaker Amputation: No Fractures: No - *Social History Smoking Status: Former smoker (1 pack of cigarettes per day for 4 years, vaping for 10 years) Tobacco Type: cigarettes, e-cigarettes Alcohol Intake: never *Occupational Status:: employed Housing: house Household Members: spouse, family, children *Travel in the last 8 weeks: None Family Hx:: No significant family history Meds Home Medications Medication Instructions Recorded Confirmed Type Promethazine/Dextromethorphan 5 ml PO Q6HP PRN #240 ml 04/10/21 04/28/21 Rx [Promethazine-Dm Syrup] Azelastine HCl [Azelastine Nasal 2 spray NS BIDP PRN 04/28/21 04/28/21 History [place] 30mL Bottle] Cefdinir [Omnicef 300mg Capsule] 300 mg PO BID #14 cap 05/02/21 Rx Allergies Allergy/AdvReac Type Severity Reaction Status Date / Time No Known Allergies Allergy Verified 04/10/21 18:56 Exam - Constitutional no acute distress - *Routine HEENT Exam Head: Present: normocephalic Eye: Present: EOMI, PERRL ENT: Present: mucous membranes moist - *Routine Neck Exam Present: supple. Absent: lymphadenopathy - *Routine Respiratory Exam Present: decreased breath sounds - *Routine Cardiovascular Exam Present: RRR - *Routine Abdominal Exam Present: soft. Absent: tenderness - *Routine Extremities Exam Absent: cyanosis, clubbing, edema - *Routine Skin Exam Present: warm. Absent: rash - *Routine Neurological Exam Present: alert, oriented X3 Assessment and Plan - Assessment and plan all Dx Assessment and Plan for all problems:: Plan for right-sided chest tube placement
--- NOTE | 2021-05-15 16:29 | HMH.PHAVTE ---
[facility] Pharmacy VTE Monitoring - Patient Demographics Admission date: 05/15/21 Report Date: 05/15/21 Time: 16:29 Allergies/Adverse Reactions: Patient Allergies No Known Allergies Allergy (Verified 04/10/21 18:56) - Prophylaxis VTE Prophylaxis Ordered?: Yes Types of VTE Prophylaxis: TEDS Knee High Location of Applied Device: Bilateral Lower Extremeties
--- NOTE | 2021-05-15 16:30 | HMH.PHAINT ---
MEDICATION RECONCILIATION COMPLETED ON PATIENT USING EXTERNAL FILL HISTORY FROM PHARMACY AND DISCHARGE SUMMARY FROM PREVIOUS ADMISSION. -CEZAR WOOTEND
[2021-05-15 16:44] VITALS: BMI 29.0
--- NOTE | 2021-05-15 16:44 | PC.NURSE ---
1600: pt arrived to the floor as a direct admit from Dr. Ford' office 1615: Dr. Chappell @ 1625: Fent 50mcg and Versed 1mg given per Dr. Chappell 1635: 24fr chest tube inserted on right side and is to 20cm sx. Pt tolerated procedure well. Has been A&O.
--- NOTE | 2021-05-15 16:46 | XR_ITS ---
PROCEDURE INFORMATION: Exam: XR Chest Exam date and time: 05/15/2021 4:46 PM Age: 36 years old Clinical indication: Device placement; Chest tube; Additional info: Right chest tube TECHNIQUE: Imaging protocol: XR of the chest. Views: 1 view. COMPARISON: CR XR CHEST 2V 05/15/2021 3:10 PM FINDINGS: Tubes, catheters and devices: Chest tube projects over the lower right chest. Lungs: Diffuse bilateral pneumonia pattern. Possible large bleb or pneumatocele at the medial right lung base. Pleural spaces: No residual pneumothorax. Heart/Mediastinum: Unremarkable. No cardiomegaly. Bones/joints: Unremarkable. IMPRESSION: No residual pneumothorax following right-sided chest tube placement.
--- NOTE | 2021-05-15 16:48 | HMH.OPNOTE ---
Date of procedure: 05/15/21 Pre-op Diagnosis:: Right-sided pneumothorax Post-op Diagnosis:: Same Procedure performed:: Placement of 24 [place] right thoracostomy tube Surgeon:: Clifford Chappell MD Anesthesia: local Estimated blood loss (mL): 4 Operative findings:: Chaparro of air consistent with pneumothorax Operative note:: Consent was obtained. Patient was maintained in a supine position on the hospital bed. The right lateral chest was prepped and draped in the standard surgical fashion. Local anesthetic was infiltrated in the anterior right axillary line. Incision was made. Dissection was carried down through subcutaneous tissues and intercostal muscles using blunt dissection. Pleural space was then bluntly entered. There was a strong chaparro of air. A 24 [place] chest tube was then inserted into the right pleural space to approximately 18 cm arnav. It was secured at the skin with 0 Surgilon suture. The chest tube was attached to the Pleur-evac. Antibiotic dressing followed by clean dry sterile dressing was applied. Chest x-ray reveals placement of chest tube inferiorly with significant improvement in pneumothorax. Condition: stable Disposition: no change Complications:: None immediately apparent
[2021-05-15 17:03] LABS: Coronavirus 19, PCR Not Detected (NotDetected); Influenza A, PCR Not Detected (NotDetected); Influenza B, PCR Not Detected (NotDetected)
[2021-05-15 18:03] LABS: INR 0.94 (0.9-1.1); Prothrombin Time 10.7 seconds (10.1-12.5)
[2021-05-15 18:04] LABS: Alanine Aminotransferase 42 U/L (12-78); Albumin Level 3.9 g/dl (3.5-5.0); Albumin/Globulin Ratio 1.2 (1.1-1.8); Alkaline Phosphatase 72 U/L (38-126); Anion Gap 12.4 mEq/L (5-15); Aspartate Amino Transferase 27 U/L (17-59); Bilirubin,Total 0.4 mg/dl (0.2-1.3); Blood Urea Nitrogen 11 mg/dl (9-20); Calcium 8.9 mg/dl (8.4-10.2); Carbon Dioxide 29 mmol/L (22.0-30.0); Chloride 102 mmol/L (98-107); Creatinine Clearance Estimated 158 mL/min (50-200); Estimated Glomerular Filt Rate 108 ml/min (>60); GFR (African American) 131 ML/MIN (>60); Globulin 3.2 g/dL (1.3-3.2); Glucose 100 mg/dl (74-100); Potassium 4.4 mmoL/L (3.5-5.1); Sodium 139 mmol/L (136-145); Total Protein,Serum 7.1 g/dl (6.3-8.2)
[2021-05-15 18:07] LABS: Basophils # 0.1 K/mm3 (0-0.2); Basophils % 1.2 % (0.1-2.0); Eosinophils # 0.2 K/mm3 (0.0-0.4); Eosinophils % 4.4 % (0.1-12.0); Hematocrit 40.3 % (42.0-52.0); Hemoglobin 12.8 g/dL (14.1-18.0); Lymphocytes # 1.8 K/mm3 (0.7-4.5); Lymphocytes % 32.1 % (10-50); Mean Corpuscular HGB Conc 31.8 g/dL (31.8-35.4); Mean Corpuscular Hemoglobin 28.3 pg (27.0-31.2); Mean Corpuscular Volume 89.1 fl (80-94); Mean Platelet Volume 7.8 fl (7.4-10.4); Monocytes # 0.5 K/mm3 (0.1-1.0); Monocytes % 9.5 % (1.7-9.3); Neutrophils # 2.9 K/mm3 (1.8-7.8); Neutrophils % 52.8 % (37.0-80.0); Platelet Count 333 K/mm3 (142-424); Red Blood Count 4.53 M/mm3 (4.60-6.20); White Blood Count 5.5 K/mm3 (4.8-10.8)
[2021-05-15 20:00] VITALS: BP 150/78; PULSE 98; RESP 18; TEMP 36.9; O2SAT 94
[2021-05-16] VITALS: BP 133/69; PULSE 96; RESP 20; TEMP 36.8; O2SAT 93
[2021-05-16 04:00] VITALS: BP 132/68; PULSE 96; RESP 18; TEMP 36.7; O2SAT 95
[2021-05-16 06:00] VITALS: BMI 29.0
--- NOTE | 2021-05-16 06:58 | HMH.GSPN ---
Subjective Patient reports: feels better Progress Note: A&P (1) Pneumothorax, right Status: Acute Assessment and plan: Overall, doing well status post chest tube placement. Continue chest tube to suction for now Repeat chest x-ray in the morning Exam Vital signs and Labs for Last 24 Hours: Temp Pulse Resp BP Pulse Ox 98.0 F 96 H 18 132/68 95 05/16/21 04:00 05/16/21 04:00 05/16/21 04:00 05/16/21 04:00 05/16/21 04:00 Laboratory Results - last 24 hr 05/15/21 16:20: WBC 5.5, RBC 4.53 L, Hgb 12.8 L, Hct 40.3 L, MCV 89.1, MCH 28.3, MCHC 31.8, RDW 13.0, Plt Count 333, MPV 7.8, Neut % (Auto) 52.8, Lymph % (Auto) 32.1, [place] % (Auto) 9.5 H, Eos % (Auto) 4.4, Baso % (Auto) 1.2, Neut # (Auto) 2.9, Lymph # (Auto) 1.8, [place] # (Auto) 0.5, Eos # (Auto) 0.2, Baso # (Auto) 0.1 05/15/21 16:20: PT 10.7, INR 0.94 05/15/21 16:20: Sodium 139, Potassium 4.4, Chloride 102, Carbon Dioxide 29, Anion Gap 12.4, BUN 11, Creatinine 0.80, Estimated Creat Clear 158, Estimated GFR 108, Est GFR ( Amer) 131, Glucose 100, Calcium 8.9, Total Bilirubin 0.4, AST 27, ALT 42, Alkaline Phosphatase 72, Total Protein 7.1, Albumin 3.9, Globulin 3.2, Albumin/Globulin Ratio 1.2 05/15/21 16:55: SARS-CoV-2 (PCR) Not detected, Influenza A Untype (PCR) Not detected, Influenza Type B (PCR) Not detected I & O for Last 24 hours: Intake & Output 05/13/21 05/14/21 05/15/21 05/16/21 11:59 11:59 11:59 11:59 Intake Total 240 / 240 Output Total 768 / 768 Balance -528 / -528 Weight 196 lb 4.017 oz - Constitutional no acute distress - *Routine Respiratory Exam Comments: No definitive air leak with cough
--- NOTE | 2021-05-16 07:00 | XR_ITS ---
FINAL REPORT CLINICAL HISTORY: right PTX COMPARISON: One day prior FINDINGS: There is a large bore right chest tube. The heart size is normal. The mediastinum is normal. Again seen is dense bilateral airspace infiltrates. There is n a persistent pneumothorax of less than 1 cm in the periphery of the right lung apex. There is no osseous abnormality. IMPRESSION: Persistent right pneumothorax with large bore chest tube in place. Persistent bilateral airspace infiltrates. Reviewed, Interpreted and Dictated by Franky Ely MD Transcribed by Shayne Reed Authenticated by Franky Ely MD on 05/16/2021 08:38:43 AM [facility]
--- NOTE | 2021-05-16 07:30 | HMH.HP ---
*Admission Date: 05/15/21 *Chief complaint: Shortness of breath *History of present illness: 36-year-old male presented to the office on May 15 for what was an anticipated routine follow-up after hospitalization for Covid. When patient presented he reported increasing shortness of breath over the preceding 3 to 4 days since he had done some strenuous yard work. Patient reported right-sided chest pain along with episodes of hemoptysis and worsening dyspnea. Home O2 monitoring revealed sats in the low 90s. Patient looked ill and was diaphoretic. His symptoms were concerning for pulmonary embolism after having recently had Covid. He had some associated right calf tenderness. Patient was sent to the hospital for CT angiogram of the chest. Patient's PE was ruled out but he was found to have a large pneumothorax. Patient was admitted for chest tube placement by Dr. Chappell yesterday evening. This morning the patient reports feeling better in regards to any dyspnea. He still has significant chest pain caused by the chest tube [facility] History I have reviewed the patient's past medical history: Yes Medical History: Denies:: Cancer, Diabetes Mellitus Type 1, Diabetes Mellitus Type 2, Internal Pacemaker, MRSA *Have you ever received a pneumonia vaccine?: No *Have you received a flu vaccine this season?: No Comment:: COVID 19 pneumonia April 2021 Other Surgeries: No: Pacemaker Amputation: No Fractures: No - *Social History Last grade of school completed: High school graduate Smoking Status: Former smoker (1 pack of cigarettes per day for 4 years, vaping for 10 years) Tobacco Type: cigarettes, e-cigarettes Alcohol Intake: never *Occupational Status:: employed Housing: house Household Members: significant other *Travel in the last 8 weeks: None Family Hx:: Cancer, Kidney Disease Review of Systems - Review of Systems Review of systems:: pertinent systems reviewed and negative unless documented below Meds Home Medications Medication Instructions Recorded Confirmed Type Azelastine HCl [Azelastine Nasal 2 spray NS BIDP PRN 04/28/21 05/15/21 History [place] 30mL Bottle] Allergies Allergy/AdvReac Type Severity Reaction Status Date / Time No Known Allergies Allergy Verified 04/10/21 18:56 Exam Vital signs and Labs for Last 24 Hours: Temp Pulse Resp BP Pulse Ox 98.0 F 96 H 18 132/68 95 05/16/21 04:00 05/16/21 04:00 05/16/21 04:00 05/16/21 04:00 05/16/21 04:00 Laboratory Results - last 24 hr 05/15/21 16:20: WBC 5.5, RBC 4.53 L, Hgb 12.8 L, Hct 40.3 L, MCV 89.1, MCH 28.3, MCHC 31.8, RDW 13.0, Plt Count 333, MPV 7.8, Neut % (Auto) 52.8, Lymph % (Auto) 32.1, Angelina % (Auto) 9.5 H, Eos % (Auto) 4.4, Baso % (Auto) 1.2, Neut # (Auto) 2.9, Lymph # (Auto) 1.8, Angelina # (Auto) 0.5, Eos # (Auto) 0.2, Baso # (Auto) 0.1 05/15/21 16:20: PT 10.7, INR 0.94 05/15/21 16:20: Sodium 139, Potassium 4.4, Chloride 102, Carbon Dioxide 29, Anion Gap 12.4, BUN 11, Creatinine 0.80, Estimated Creat Clear 158, Estimated GFR 108, Est GFR ( Amer) 131, Glucose 100, Calcium 8.9, Total Bilirubin 0.4, AST 27, ALT 42, Alkaline Phosphatase 72, Total Protein 7.1, Albumin 3.9, Globulin 3.2, Albumin/Globulin Ratio 1.2 05/15/21 16:55: SARS-CoV-2 (PCR) Not detected, Influenza A Untype (PCR) Not detected, Influenza Type B (PCR) Not detected I & O for Last 24 hours: Intake & Output 05/13/21 05/14/21 05/15/21 05/16/21 11:59 11:59 11:59 11:59 Intake Total 240 / 240 Output Total 768 / 768 Balance -528 / -528 Weight 196 lb 4.017 oz - Constitutional no acute distress - *Routine HEENT Exam Head: Present: normocephalic Eye: Present: EOMI, PERRL ENT: Present: mucous membranes moist - *Routine Neck Exam Present: supple. Absent: lymphadenopathy - Routine Chest/Breast/Axilla Exam Comments: Chest tube in place - *Routine Respiratory Exam Present: CTA bilaterally - *Routine Cardiovascular Exam Present: RRR
[2021-05-16 08:00] VITALS: BP 140/78; PULSE 93; RESP 18; TEMP 36.6; O2SAT 91
[2021-05-16 10:00] VITALS: BP 140/81; PULSE 84; RESP 18; TEMP 36.9; O2SAT 90
[2021-05-16 16:00] VITALS: BP 129/73; PULSE 90; RESP 18; TEMP 36.7; O2SAT 91
--- NOTE | 2021-05-16 19:00 | PC.NURSE ---
PT IS RESTING IN BED. MEDICATED PER MAR FOR DISCOMFORT. CHEST TUBE NOTED TO THE RT SIDE WITH DRESSING C/D/I. CONNECTED TO LOW WALL SUCTION. 20 ML'S DRAINAGE THIS SHIFT. PT HAS BEEN EATING AND DRINKING WELL. LUNG SOUNDS CLEAR. ABDOMEN SOFT/NON TENDER WITH ACTIVE BOWEL SOUNDS. WILL CONTINUE TO MONITOR.
[2021-05-16 20:00] VITALS: BP 126/76; PULSE 89; RESP 18; TEMP 36.4; O2SAT 96
[2021-05-17] VITALS: BP 126/68; PULSE 72; RESP 20; TEMP 36.8; O2SAT 94
[2021-05-17 04:00] VITALS: BP 124/68; PULSE 62; RESP 19; TEMP 36.6; O2SAT 94
[2021-05-17 06:00] VITALS: BMI 29.1
--- NOTE | 2021-05-17 06:00 | XR_ITS ---
PROCEDURE INFORMATION: Exam: XR Chest Exam date and time: 05/17/2021 6:00 AM Age: 36 years old Clinical indication: Condition or disease; Lung condition and disease; Pneumothorax; Additional info: Right ptx TECHNIQUE: Imaging protocol: XR of the chest. Views: 1 view. COMPARISON: CR XR CHEST PORTABLE 05/16/2021 7:22 AM FINDINGS: Tubes, catheters and devices: Right chest tube is in similar position. Lungs: Similar bilateral airspace opacities. Pleural spaces: Similar trace right pneumothorax. Heart/Mediastinum: Unremarkable. No cardiomegaly. Bones/joints: Unremarkable. IMPRESSION: 1. No significant interval change. Right chest tube is in similar position with similar trace right pneumothorax. 2. Similar appearance of multilobar airspace opacities.
--- NOTE | 2021-05-17 07:10 | HMH.ACPN2 ---
Internal Medicine - PN: Subj *Date: 05/17/21 *Time: 07:10 Interval history: Patient reports improvement in pain as well as dyspnea. Cough is minimal. He has had some nosebleeds Exam Vital signs and Labs for Last 24 Hours: Temp Pulse Resp BP Pulse Ox 97.9 F 62 19 124/68 94 L 05/17/21 04:00 05/17/21 04:00 05/17/21 04:00 05/17/21 04:00 05/17/21 04:00 I & O for Last 24 hours: Intake & Output 05/14/21 05/15/21 05/16/21 05/17/21 11:59 11:59 11:59 11:59 Intake Total 480 / 480 720 / 720 Output Total 1500 / 1500 820 / 820 Balance -1020 / -1020 -100 / -100 Weight 196 lb 4.017 oz 196 lb 9.6 oz Narrative: Patient looks comfortable. Chest tube is in place. Right lung has improved aeration and is clear. Heart has a regular rate and rhythm. Assessment and Plan (1) Pneumothorax, right Status: Acute Category: Medical Code(s): J93.9 - Pneumothorax, unspecified (2) Post-acute sequelae of SARS-CoV-2 infection Status: Acute Category: Medical Code(s): U09.9 - Post COVID-19 condition, unspecified - Assessment and plan all Dx Assessment and Plan for all problems:: 1. Chest tube management per general surgical service. X-ray has shown trace right-sided pneumothorax.
[2021-05-17 07:29] VITALS: BP 145/82; PULSE 88; RESP 16; TEMP 36.9; O2SAT 97
[2021-05-17 11:02] VITALS: BP 124/80; PULSE 82; RESP 18; TEMP 36.7; O2SAT 95
[2021-05-17 14:56] VITALS: BP 139/71; PULSE 90; RESP 16; TEMP 36.8; O2SAT 92
[2021-05-17 19:29] VITALS: BP 138/87; PULSE 100; RESP 20; TEMP 36.8; O2SAT 93
--- NOTE | 2021-05-17 19:43 | PC.NURSE ---
Pt has tolerated water seal (chest tube) w/o any issues this shift.
[2021-05-18] VITALS: BP 125/78; PULSE 99; RESP 18; TEMP 37; O2SAT 94
[2021-05-18 04:00] VITALS: BP 125/85; PULSE 85; RESP 18; TEMP 36.6; O2SAT 94
[2021-05-18 05:00] VITALS: BMI 29.3
--- NOTE | 2021-05-18 06:00 | XR_ITS ---
PROCEDURE INFORMATION: Exam: XR Chest Exam date and time: 05/18/2021 6:00 AM Age: 36 years old Clinical indication: Other: Pnemothorax right side; Additional info: Right ptx TECHNIQUE: Imaging protocol: XR of the chest. Views: 1 view. COMPARISON: CR XR CHEST PORTABLE 05/17/2021 5:21 AM FINDINGS: Tubes, catheters and devices: A right-sided pleural tube is noted. Lungs: Patchy airspace disease is present bilaterally. Pleural spaces: No residual right-sided pneumothorax is noted. Heart/Mediastinum: Unremarkable. No cardiomegaly. Bones/joints: Unremarkable. IMPRESSION: Stable patchy right-sided infiltrates. Resolution of previously noted right pneumothorax.
--- NOTE | 2021-05-18 07:36 | HMH.GSPN ---
Subjective Narrative: Patient without complaints. Chest x-ray this morning revealed no evidence of any pneumothorax. No air leak present. Progress Note: A&P (1) Pneumothorax, right Status: Acute Assessment and plan: I removed the chest tube at the bedside. [facility]ocate at least 6-hour interval chest x-ray to assess for recurrent pneumothorax. I can see the patient in the office for chest tube site inspection and suture removal in about 9 to 10 days. (2) Post-acute sequelae of SARS-CoV-2 infection Status: Acute Exam Vital signs and Labs for Last 24 Hours: Temp Pulse Resp BP Pulse Ox 97.9 F 85 18 125/85 94 L 05/18/21 04:00 05/18/21 04:00 05/18/21 04:00 05/18/21 04:00 05/18/21 04:00 I & O for Last 24 hours: Intake & Output 05/15/21 05/16/21 05/17/21 05/18/21 11:59 11:59 11:59 11:59 Intake Total 480 / 480 1200 / 1200 1080 / 1080 Output Total 1490 / 1490 2230 / 2230 2300 / 2300 Balance -1010 / -1010 -1030 / -1030 -1220 / -1220 Weight 196 lb 4.017 oz 196 lb 9.6 oz 198 lb 4 oz - Routine Chest/Breast/Axilla Exam Comments: Chest tube site dressed.
--- NOTE | 2021-05-18 07:39 | PC.NURSE ---
surgeon in to remove chest tube. Pt tolerated well. tegaderm in place. c/d/i
[2021-05-18 07:44] VITALS: BP 142/67; PULSE 88; RESP 18; TEMP 36.6; O2SAT 94
--- NOTE | 2021-05-18 08:14 | HMH.ACPN2 ---
Internal Medicine - PN: Subj *Date: 05/18/21 *Time: 08:14 Interval history: Patient is stable. Chest tube was removed approximately 45 minutes ago. Patient is feeling well and denies shortness of breath Exam Vital signs and Labs for Last 24 Hours: Temp Pulse Resp BP Pulse Ox 97.8 F 88 18 142/67 H 94 L 05/18/21 07:44 05/18/21 07:44 05/18/21 07:44 05/18/21 07:44 05/18/21 07:44 I & O for Last 24 hours: Intake & Output 05/15/21 05/16/21 05/17/21 05/18/21 11:59 11:59 11:59 11:59 Intake Total 480 / 480 1200 / 1200 1080 / 1080 Output Total 1490 / 1490 2230 / 2230 2300 / 2300 Balance -1010 / -1010 -1030 / -1030 -1220 / -1220 Weight 196 lb 4.017 oz 196 lb 9.6 oz 198 lb 4 oz - Constitutional no acute distress - *Routine Respiratory Exam Present: CTA bilaterally - *Routine Cardiovascular Exam Present: RRR Assessment and Plan (1) Pneumothorax, right Status: Resolved Category: Medical Code(s): J93.9 - Pneumothorax, unspecified (2) Post-acute sequelae of SARS-CoV-2 infection Status: Acute Category: Medical Code(s): U09.9 - Post COVID-19 condition, unspecified - Assessment and plan all Dx Assessment and Plan for all problems:: Patient will be observed and have repeat chest x-ray this afternoon. If chest x-ray stable patient will be discharged home
[2021-05-18 11:02] VITALS: BP 135/77; PULSE 89; RESP 18; TEMP 36.7; O2SAT 93
--- NOTE | 2021-05-18 14:00 | XR_ITS ---
PROCEDURE INFORMATION: Exam: XR Chest Exam date and time: 05/18/2021 2:00 PM Age: 36 years old Clinical indication: Shortness of breath; Additional info: Pneumothorax- S/P chest tube removal TECHNIQUE: Imaging protocol: XR of the chest. Views: 2 views. COMPARISON: CR XR CHEST PORTABLE 05/18/2021 6:13 AM FINDINGS: Lungs: Bilateral consolidation, unchanged. Pleural spaces: No pneumothorax after right pleural tube removal, possible trace right pleural effusion. Heart/Mediastinum: Partially obscured, no cardiomegaly. Bones/joints: No acute findings. IMPRESSION: No pneumothorax. Bilateral pneumonia.
[2021-05-18 15:12] VITALS: BP 124/73; PULSE 91; RESP 16; TEMP 36.7; O2SAT 93
--- NOTE | 2021-05-18 16:01 | PC.NURSE ---
pt has been discahrged form the unit. IV discontinued. Dressing to r chest wall is c/d/i. voiced understanding of discahrge education and follow up appts.
--- NOTE | 2021-05-19 08:23 | HMH.DCSUM ---
General - General Admission date:: 05/15/21 Discharge date: 05/18/21 HPI HPI: 36-year-old male presented to the office on May 15 for what was an anticipated routine follow-up after hospitalization for Covid. When patient presented he reported increasing shortness of breath over the preceding 3 to 4 days since he had done some strenuous yard work. Patient reported right-sided chest pain along with episodes of hemoptysis and worsening dyspnea. Home O2 monitoring revealed sats in the low 90s. Patient looked ill and was diaphoretic. His symptoms were concerning for pulmonary embolism after having recently had Covid. He had some associated right calf tenderness. Patient was sent to the hospital for CT angiogram of the chest. Patient's PE was ruled out but he was found to have a large pneumothorax. Patient was admitted for chest tube placement by Dr. Chappell yesterday evening. This morning the patient reports feeling better in regards to any dyspnea. He still has significant chest pain caused by the chest tube Hospital Course Hospital Course: Patient was direct admitted after identification of right pneumothorax as the source of his chest pain. Surgical service was consulted and Dr. Chappell placed a chest tube. Chest tube remained in place for just over 48 hours. Pneumothorax resolved and chest tube was pulled. Patient was observed for 6 additional hours after removal of chest tube. There was no recurrence of pneumothorax and patient was discharged home. During hospitalization pain was controlled with scheduled ibuprofen and as needed hydrocodone Objective Vital signs: Temp Pulse Resp BP Pulse Ox 98.0 F 91 H 16 124/73 93 L 05/18/21 15:12 05/18/21 15:12 05/18/21 15:12 05/18/21 15:12 05/18/21 15:12 DS: Diagnosis - Discharge Diagnosis (1) Pneumothorax, right Status: Resolved (2) Post-acute sequelae of SARS-CoV-2 infection Status: Acute Discharge Plan - Patient Discharge Instructions ACTIVITY: Continue current activity DIET: continue same diet Patient Instructions: DI for Pneumothorax, DI for Surgical Site Infection, DI for Chest Tube Insertion - Follow up Plan Follow up with: Clifford Chappell MD [Staff Physician] - 10 days Festus Ford MD [Primary Care Provider] - 1 week Disposition: Home, Self-Care Condition at discharge:: Improved Home Medications: Home Medications Medication Instructions Recorded Confirmed Type Azelastine HCl [Azelastine Nasal 2 spray NS BIDP PRN 04/28/21 05/15/21 History [place] 30mL Bottle] Prescriptions/Medication Reconciliation: Continued Azelastine HCl [Azelastine Nasal [place] 30mL Bottle] 2 spray NS BIDP PRN PRN Reason: ALLERGIES - Problem Reconciliation Problems Reviewed?: Yes
== END 2021-05-18 15:55 | disposition home or self-care (01) | DRG 201 ==
LOC: 2ND 16:07
PROVIDERS: Admitting Provider Family Medicine; PCP Family Medicine; Visit Provider Family Medicine
DX: J93.9 Pneumothorax, unspecified (principal); Z87.891 Personal history of nicotine dependence; U09.9 Post COVID-19 condition, unspecified
CPT/HCPCS: 32556; 71045; 71046; 71275; 80053; 85025; 85610; C9803; Q9967; U0003; U0005